=== PATIENT | male | born 1955 | race Caucasian/White ===

== ENCOUNTER 2017-12-08 18:13 | Emergency (ER) | payer OTHER ==
[~2017-12-08] VITALS: Ht 170.2 cm; Wt 74.8 kg
[~2017-12-08 18:13] MED LIST: AMOXIL 875 MG875 MG PO; DOXYCYCLINE100 MG PO
--- NOTE | 2017-12-08 18:29 | ED GENERAL ADULT ---
History of Present Illness General Chief Complaint: Male Genitourinary Problems Stated Complaint: FEVER, ACHES, DIFFICULTY URINATING, SLOW FLOW Source: patient Exam Limitations: no limitations Vital Signs & Intake/Output Vital Signs & Intake/Output Vital Signs Date Time Temp Pulse Resp B/P B/P Pulse O2 O2 Flow FiO2 Mean Ox Delivery Rate 12/09 2019 99.0 83 18 116/71 98 Room Air 12/08 1919 Room Air 12/08 1816 99.4 94 18 97 Room Air ED Intake and Output 12/09 0000 12/08 1200 Intake Total Output Total 100 Balance -100 Output, Urine 100 Patient 165 lb Weight Weight Reported by Patient Measurement Method Allergies Coded Allergies: NO KNOWN ALLERGIES (01/30/14) Reconcile Medications Amoxicillin (Amoxil 875 MG Tablets) 875 MG TAB 1 TAB PO BID EAR INFECTION ( Reported) Doxycycline Hyclate 100 MG CAP 1 CAP PO BID TICK BITE Triage Note: 62 Y/O MALE C/O "I THINK I HAVE A PROSTATE INFECTION OR A UTI". C/O URINARY URGENCY, GENERAL BODY ACHES AND INTERMITTENT FEVERS. TOOK 600MG IBUPROPHEN APPROX 2 HOURS AGO, TEMP 99.4 URINE SAMPLE REQUESTED Triage Nurses Notes Reviewed? yes Onset: Gradual Duration: day(s): Timing: constant HPI: 62-year-old male with a history of BPH presenting with fevers to 101 Fahrenheit, headaches, myalgias, fatigue, and generalized malaise 1 week. Patient states that his urine has been a dark yellow color and he is concerned that he may have a UTI, but denies any dysuria, hematuria, urinary frequency/urgency. Patient states he was previously treated for BPH with pharmacologic medications, has been off the medications and doing well for one year. Over the past week he has had difficulty initiating urine stream, but states that he is eventually able to urinate and does feel like he is able to completely empty his bladder. Denies back pain or perineal pain. No recent sick contacts, travel, insect bites, rashes, URI symptoms, cough, chest pain, shortness of breath, abdominal pain, nausea, vomiting, diarrhea. (Callie Gandhi) Past History Travel History Traveled to [place] past 21 day No Medical History Any Pertinent Medical History? see below for history Neurological: NONE EENT: NONE Cardiovascular: NONE Respiratory: NONE Gastrointestinal: NONE Hepatic: NONE Renal: NONE Musculoskeletal: NONE Psychiatric: NONE Endocrine: NONE Blood Disorders: NONE Cancer(s): NONE APPRENTICE COSMETOLOGIST/Reproductive: BPH Surgical History Surgical History: non-contributory Psychosocial History What is your primary language [place]ym[place] Tobacco Use: Current Not Daily Family History Hx Contributory? No (Callie Gandhi) Review of Systems Review of Systems Constitutional: Reports: see HPI. EENTM: Reports: no symptoms. Respiratory: Reports: no symptoms. Cardiovascular: Reports: no symptoms. GI: Reports: no symptoms. Genitourinary: Reports: see HPI. Musculoskeletal: Reports: no symptoms. Skin: Reports: no symptoms. Neurological/Psychological: Reports: no symptoms. Hematologic/Endocrine: Reports: no symptoms. Immunologic/Allergic: Reports: no symptoms. (Callie Gandhi) Physical Exam Physical Exam General Appearance: well developed/nourished, no apparent distress, alert, awake , comfortable Head: atraumatic, normal appearance Eyes: Bilateral: normal appearance. Ears, Nose, Throat: normal ENT inspection Neck: normal inspection, no meningeal signs Respiratory: normal breath sounds, lungs clear Cardiovascular: regular rate/rhythm Gastrointestinal: soft, non-tender Rectal: on rectal exam prostate is enlarged, but not boggy or tender to palpation Back: normal inspection, no CVAT Extremities: normal inspection Neurologic/Psych: awake, alert, oriented x 3, normal gait, normal mood/affect Skin: intact, normal color, warm/dry Core Measures ACS in differential dx? No CVA/TIA Diagnosis: No Sepsis Present: No Sepsis Focused Exam Completed? No (Callie Gandhi) Progress Differential Diagnoses I considered the following diagnoses in my evaluation of the patient: [BPH versus UTI versus pyelonephritis versus prostatitis versus viral syndrome versus Lyme, low concern for meningitis] Plan of Care: Orders Procedure Date/time Status Add-on Test (ER Only) 12/09 2027 Active HEPATIC FUNCTION PANEL 12/08 1910 Complete LYME TITRE 12/08 1836 Active CULTURE,URINE 12/08 1828 Active URINALYSIS 12/08 1828 Complete CBC WITHOUT DIFFERENTIAL 12/08 1828 Complete BASIC METABOLIC PANEL 12/08 1828 Complete Laboratory Tests 12/08/171910: Anion Gap 8, Estimated GFR > 60, BUN/Creatinine Ratio 20.0, Glucose 125 H, Calcium 8.6, Total Bilirubin 1.2, Direct Bilirubin 0.2, AST 36, ALT 54, Alkaline Phosphatase 67, Total Protein 6.8, Albumin 3.5, CBC w Diff MAN DIFF ORDERED, RBC 4.57 L, MCV 88.4, MCH 30.3, MCHC 34.3, RDW 14.4, MPV 8.7, Gran % 60.8, Lymphocytes % 17.1 L, Monocytes % 21.2 H, Eosinophils % 0.6, Basophils % 0.3, Absolute Granulocytes 3.6, Absolute Lymphocytes 1.0 L, Absolute Monocytes 1.3 H, Absolute Eosinophils 0, Absolute Basophils 0, Platelet Estimate DECREASED, Normocytic RBCs VERIFIED, Normochromic RBCs VERIFIED, Lyme Disease Antibody Pending 12/08/171909: Urine Color YEL, Urine Clarity CLEAR, Urine pH 6.0, Ur Specific [place] 1.025, Urine Protein TRACE H, Urine Ketones 15 H, Urine Nitrite NEG, Urine Bilirubin NEG@ICTO, Urine Urobilinogen 1.0, Ur Leukocyte Esterase NEG, Ur Microscopic SEDIMENT EXAMINED, Urine RBC RARE, Urine WBC RARE, Ur Epithelial Cells FEW, Urine Mucus MANY H, Urine Hemoglobin SMALL H, Urine Glucose NEG Microbiology 12/08 1909 URINE ROUT: Urine Culture - RES UA is not suspicious for infection, urine culture was sent for confirmation. UA showed small amount of blood, patient was informed that she will need repeat UA with his urologist to ensure that this clears, and if not will need a malignancy workup. Patient will follow up with his urologist regarding his BPH and urinary hesitancy. At this time he is spontaneously voiding and there is no indication for Dodson placement. Suspect the remainder of patient's symptoms (fever, headache, myalgias, malaise, fatigue) are secondary to viral syndrome versus Lyme disease. Lyme titer was sent and pending. Labs showed mild thrombocytopenia, further supporting ?viral syndrome vs lyme disease. Patient offered empiric antibiotic treatment but declining at this time. Would prefer to wait and see if the testing is positive. Patient is followed by Dr. Da Silva for primary care and will follow up for reevaluation. Given strict return precautions. Initial ED EKG: none (Callie Gandhi) Departure Departure Disposition: HOME OR SELF CARE Condition: Stable Clinical Impression Primary Impression: Fever Secondary Impressions: Fatigue, Headache, Myalgia, Urinary hesitancy Referrals: Rekha ENGEL,Ester Garcia (PCP/Family) Additional Instructions: Use tylenol or motrin as needed for fevers or body aches. Follow-up with your urologist and your primary care provider for reevaluation. You'll receive a phone call if your lyme testing is positive. Return to the emergency department for any new or worsening symptoms. Departure Forms: Customer Survey General Discharge Information (Callie Gandhi) PA/SULFUR BURNER Co-Sign Statement Statement: ED Attending supervision documentation- [X] I saw and evaluated the patient. I have also reviewed all the pertinent lab results and diagnostic results. I agree with the findings and the plan of care as documented in the PA's/SULFUR BURNER's documentation. [X] I have reviewed the ED Record and agree with the PA's/SULFUR BURNER's documentation. [] Additions or exceptions (if any) to the PAs/SULFUR BURNER's note and plan are summarized below: [] (Brian ENGEL,Leno Carlson) Critical Care Note Critical Care Note Critical Care Time: non-applicable (Callie Gandhi)
[2017-12-08 19:23] LABS: ABSOLUTE BASOPHIL COUNT 0 /CUMM (0.0-0.2); ABSOLUTE EOSINOPHIL COUNT 0 /CUMM (0.0-0.7); ABSOLUTE GRANULOCYTE CT 3.6 /CUMM (1.4-6.5); ABSOLUTE MONOCYTE COUNT 1.3 /CUMM (0.10-0.60); BASOPHIL % 0.3 % (0.0-2.0); EOSINOPHIL % 0.6 % (0-5); GRANULOCYTE % 60.8 % (42.2-75.2); HEMATOCRIT 40.4 % (42-52); MEAN CORPUSCULAR HGB 30.3 PG (27.0-31.0); MEAN CORPUSCULAR HGB CONC 34.3 G/DL (33.0-37.0); MEAN CORPUSCULAR VOLUME 88.4 FL (80.0-94.0); MEAN PLATELET VOLUME 8.7 FL (7.4-10.4); PLATELET COUNT 109 /CUMM (130-400); RBC DISTRIBUTION WIDTH 14.4 % (11.5-14.5); RED BLOOD CELL CT 4.57 /CUMM (4.70-6.10); WHITE BLOOD CELL COUNT 5.9 /CUMM (4.8-10.8)
[2017-12-08 20:20] VITALS: BP 116/71
== END 2017-12-08 21:03 ==
LOC: ERH 18:13
PROVIDERS: Physician Assistant
DX: R50.9 Fever, unspecified (principal); R53.83 Other fatigue; R51 Headache; M79.1 Myalgia; R39.11 Hesitancy of micturition
CPT/HCPCS: 86618; 81001; 87086